=== PATIENT | female | born 1955 | race Caucasian/White ===

== ENCOUNTER 2017-02-09 05:48 | Emergency (ER) | payer MEDICAID ==
[~2017-02-09] VITALS: Ht 162.6 cm; Wt 59.0 kg
[~2017-02-09 05:48] MED LIST: AMITRIPTYLINE H50 MG PO; ASPIRIN325 MG PO; ATENOLOL25 MG PO; BACO TOP; CAPOTEN12.5 MG PO; CARAFATE1 GM PO; CATOPRIL PO; CIPRO500 MG PO; COLACE100 MG PO; CYCLOBENZAPRINE5 MG PO; ELA50 PO; ESG PO; ESTRADIOL0.1 MG/24 TD; FERG PO; FERROUS SULFAT325 M2 PO; GABAPENTIN300 M3 PO; HIB240 TP; HIBICLENS118 ML TOP; HYD1C TOP; HYD25 PO; HYDROCHLOROTHIA25 MG PO; IBUPROFEN400 MG PO; IMD60 PO; ISOSORBIDE MONO60 MG PO; KENC TOP; KLO0.5 PO; LAC PO; LAC-HYDRIN12% TOP; LEVAQUIN750 MG PO; MOTRIN600 MG PO; MUPIROCIN2% TOP; MYL80 CH; NEU300 PO; NORCO1 TA1 PO; OMEPRAZOLE DR20 M1 PO; PLA75 PO; PROAIR HFA0.09 MG/A1 INH; SIMVASTATIN40 M1 PO; TRIAMCINOLONE AC0.13 TOP; VENTOLIN H0.09 MG/A1 INH; VITAMIN C500 M3 PO; VIVELLE-DO0.1 MG/24 TD; VIVELLE-DO0.1 MG/24 TOP; ZOCOR40 MG PO; ZOLOFT50 MG PO; ZOLPIDEM TARTRAT5 MG PO
[2017-02-09 06:52] LABS: CALCIUM 8.7 mg/dL (8.5-10.1); CARBON DIOXIDE 29.4 mmol/L (21-32); CHLORIDE SERUM 106 mmol/L (98-107); CREATININE SERUM 0.6 mg/dL (0.6-1.0); GFR1 > 60 mL/min; GLUCOSE SERUM 90 mg/dL (74-106); POTASSIUM SERUM 3.7 mmol/L (3.5-5.1); SODIUM SERUM 143 mmol/L (136-145)
[2017-02-09 06:55] LABS: BASOPHIL % 0.7 % (0-2); PLATELET COUNT 386 x10^3mcL (130-400)
[2017-02-09 06:56] LABS: RED CELL DISTRIBUTION WIDTH 20.2 % (11.5-14.5)
[2017-02-09 06:57] LABS: rbc morphology (normal/abnorm) ABNORMAL (NORMAL)
[2017-02-09 06:58] LABS: ALBUMIN 3.6 g/dL (3.4-5.0); ALKALINE PHOSPHATASE 106 U/L (46-116); ALT/SGPT 18 U/L (14-59); AST/SGOT 20 U/L (15-37); BILIRUBIN TOTAL 0.27 mg/dL (0.20-1.00); CHOLESTEROL 166 mg/dL (<200); HDL CHOLESTEROL 56 mg/dL (40-60); TOTAL PROTEIN, SERUM 7.4 g/dL (6.4-8.2)
[2017-02-09 09:30] VITALS: BP 131/74
== END 2017-02-09 09:30 | disposition home or self-care (01) ==
LOC: ED 05:48
PROVIDERS: Emergency Medicine
DX: R06.00 Dyspnea, unspecified (principal); J98.01 Acute bronchospasm; G89.29 Other chronic pain; M54.40 Lumbago with sciatica, unspecified side; E78.00 Pure hypercholesterolemia, unspecified; Z88.8 Allergy status to other drugs, medicaments and biological substances
CPT/HCPCS: 83880; J2930; J7613

== ENCOUNTER 2017-06-06 11:24 | Emergency (ER) | payer MEDICAID ==
[2017-06-06 12:21] LABS: CALCIUM 8.8 mg/dL (8.5-10.1); CHLORIDE SERUM 105 mmol/L (98-107); CREATININE SERUM 0.7 mg/dL (0.6-1.0); GFR1 > 60 mL/min; GLUCOSE SERUM 109 mg/dL (74-106); POTASSIUM SERUM 4.2 mmol/L (3.5-5.1); SODIUM SERUM 140 mmol/L (136-145)
[2017-06-06 12:27] LABS: BASOPHIL % 0.5 % (0-2); PLATELET COUNT 368 x10^3mcL (130-400)
[2017-06-06 12:30] LABS: RED CELL DISTRIBUTION WIDTH 21.6 % (11.5-14.5)
[2017-06-06 12:31] LABS: rbc morphology (normal/abnorm) ABNORMAL (NORMAL)
[2017-06-06 13:30] VITALS: BP 117/68
== END 2017-06-06 13:30 | disposition home or self-care (01) ==
LOC: ED 11:24
PROVIDERS: Emergency Medicine
DX: S16.1XXA Strain of muscle, fascia and tendon at neck level, initial encounter (principal); S09.90XA Unspecified injury of head, initial encounter; I10 Essential (primary) hypertension; Z88.8 Allergy status to other drugs, medicaments and biological substances; W17.89XA Other fall from one level to another, initial encounter; Y93.89 Activity, other specified; Y99.8 Other external cause status; Y92.89 Other specified places as the place of occurrence of the external cause
CPT/HCPCS: 36415; J3010

== ENCOUNTER 2017-07-16 15:34 | Emergency (ER) | payer MEDICAID ==
[2017-07-16 18:43] VITALS: BP 125/65
== END 2017-07-16 18:43 | disposition home or self-care (01) ==
LOC: ED 15:34
DX: M51.36 Other intervertebral disc degeneration, lumbar region (principal); I10 Essential (primary) hypertension; E78.00 Pure hypercholesterolemia, unspecified; M54.30 Sciatica, unspecified side; Z88.8 Allergy status to other drugs, medicaments and biological substances; Z91.048 Other nonmedicinal substance allergy status
CPT/HCPCS: J1885

== ENCOUNTER 2017-12-13 13:39 | Inpatient (IN) | payer MEDICAID ==
[~2017-12-13] VITALS: Ht 157.5 cm; Wt 59.9 kg
[2017-12-13 13:53] VITALS: Ht 157.5 cm; Wt 59.9 kg
[2017-12-13 15:41] LABS: BASOPHIL % 0.1 % (0-2)
[2017-12-13 15:45] LABS: CALCIUM 8.5 mg/dL (8.5-10.1); CARBON DIOXIDE 30.7 mmol/L (21-32); CHLORIDE SERUM 102 mmol/L (98-107); CREATININE SERUM 0.7 mg/dL (0.6-1.0); GFR1 > 60 mL/min; GLUCOSE SERUM 98 mg/dL (74-106); POTASSIUM SERUM 3.7 mmol/L (3.5-5.1); SODIUM SERUM 141 mmol/L (136-145)
[2017-12-13 15:49] LABS: ALBUMIN 3.4 g/dL (3.4-5.0); ALKALINE PHOSPHATASE 99 U/L (46-116); ALT/SGPT 17 U/L (14-59); AST/SGOT 14 U/L (15-37); BILIRUBIN TOTAL 0.2 mg/dL (0.20-1.00); TOTAL PROTEIN, SERUM 7.2 g/dL (6.4-8.2)
[2017-12-13 15:50] LABS: PLATELET COUNT 431 x10^3mcL (130-400); RED CELL DISTRIBUTION WIDTH 21.6 % (11.5-14.5)
[2017-12-13 16:06] LABS: rbc morphology (normal/abnorm) ABNORMAL (NORMAL)
[2017-12-13] MEDS ORDERED: GOOD SENSE ASPI81 M3 PO (17:23)
[2017-12-13 18:12] VITALS: BP 176/69
[2017-12-13 18:47] LABS: T3 TOTAL 0.9 ng/mL
[2017-12-13 18:50] LABS: FREE T4 0.83 ng/dL (0.76-1.46); FREE THYROXINE INDEX 2.3 ug/dL (1.4-4.5); T4(THYROXINE) 6.9 ug/dL (4.7-13.3)
[2017-12-13 19:22] LABS: CHOLESTEROL/HDL RATIO 3.1; MAGNESIUM 1.9 mg/dL (1.8-2.4); PHOSPHOROUS 3.2 mg/dL (2.5-4.9)
[2017-12-13 22:23] VITALS: BP 136/52
[2017-12-14 06:28] VITALS: BP 129/67
[2017-12-14 09:58] VITALS: BP 121/51
[2017-12-14 12:40] VITALS: BP 127/65
[2017-12-14 16:36] VITALS: BP 107/54
[2017-12-14 16:48] VITALS: BP 107/54
== END 2017-12-14 19:28 | disposition home or self-care (01) | DRG 203 ==
LOC: ED 13:39 → DU 17:00
PROVIDERS: Family Medicine
DX: M94.0 Chondrocostal junction syndrome [Tietze] (principal); C95.90 Leukemia, unspecified not having achieved remission; I42.0 Dilated cardiomyopathy; I10 Essential (primary) hypertension; F12.90 Cannabis use, unspecified, uncomplicated; D64.9 Anemia, unspecified; K21.9 Gastro-esophageal reflux disease without esophagitis; Z53.29 Procedure and treatment not carried out because of patient's decision for other reasons; I07.1 Rheumatic tricuspid insufficiency; F41.9 Anxiety disorder, unspecified; E78.00 Pure hypercholesterolemia, unspecified; M51.17 Intervertebral disc disorders with radiculopathy, lumbosacral region; Z88.9 Allergy status to unspecified drugs, medicaments and biological substances; Z91.041 Radiographic dye allergy status; I25.2 Old myocardial infarction; Z95.5 Presence of coronary angioplasty implant and graft; Z90.49 Acquired absence of other specified parts of digestive tract; Z90.710 Acquired absence of both cervix and uterus; Z79.82 Long term (current) use of aspirin; Z79.899 Other long term (current) drug therapy; Z82.49 Family history of ischemic heart disease and other diseases of the circulatory system; Z72.89 Other problems related to lifestyle
CPT/HCPCS: 83880; 84439; J2405; J7030; Q0092

== ENCOUNTER 2018-01-19 09:28 | Emergency (ER) | payer MEDICAID ==
[~2018-01-19] VITALS: Ht 162.6 cm; Wt 66.2 kg
[~2018-01-19 09:28] MED LIST changes: +GOOD SENSE ASPI81 M3 PO
[2018-01-19 12:54] VITALS: BP 114/69
== END 2018-01-19 12:54 | disposition home or self-care (01) ==
LOC: ED 09:28
DX: G89.29 Other chronic pain (principal); M54.5 Low back pain; I10 Essential (primary) hypertension; E78.00 Pure hypercholesterolemia, unspecified; Z88.8 Allergy status to other drugs, medicaments and biological substances; Z91.048 Other nonmedicinal substance allergy status; M54.30 Sciatica, unspecified side
CPT/HCPCS: J3010

== ENCOUNTER 2018-01-21 21:31 | Emergency (ER) | payer MEDICAID ==
[~2018-01-21] VITALS: Ht 162.6 cm; Wt 66.2 kg
[2018-01-21 21:40] VITALS: Ht 162.6 cm; Wt 66.2 kg
[2018-01-21 22:54] LABS: BASOPHIL % 0.5 % (0-2)
[2018-01-21 23:02] LABS: PLATELET COUNT 425 x10^3mcL (130-400); RED CELL DISTRIBUTION WIDTH 22.4 % (11.5-14.5)
[2018-01-21 23:04] LABS: CALCIUM 8.5 mg/dL (8.5-10.1); CARBON DIOXIDE 29.1 mmol/L (21-32); CHLORIDE SERUM 105 mmol/L (98-107); CREATININE SERUM 0.8 mg/dL (0.6-1.0); GFR1 > 60 mL/min; GLUCOSE SERUM 109 mg/dL (74-106); SODIUM SERUM 141 mmol/L (136-145)
[2018-01-21 23:08] LABS: ALKALINE PHOSPHATASE 93 U/L (46-116); ALT/SGPT 21 U/L (14-59); AST/SGOT 22 U/L (15-37); BILIRUBIN TOTAL 0.14 mg/dL (0.20-1.00); TOTAL PROTEIN, SERUM 6.5 g/dL (6.4-8.2); rbc morphology (normal/abnorm) ABNORMAL (NORMAL)
[2018-01-21 23:09] LABS: ovalocyte/elliptocyte 2+; target cell (codocyte) 1+
[2018-01-21 23:20] LABS: FREE T4 0.79 ng/dL (0.76-1.46); FREE THYROXINE INDEX 2.1 ug/dL (1.4-4.5); T4(THYROXINE) 6.7 ug/dL (4.7-13.3)
[2018-01-21 23:21] LABS: ALBUMIN 3.1 g/dL (3.4-5.0)
[2018-01-22 00:38] LABS: T3 TOTAL 1.08 ng/mL
[2018-01-22 01:35] VITALS: BP 134/67
== END 2018-01-22 01:35 | disposition home or self-care (01) ==
LOC: ED 21:31
PROVIDERS: Emergency Medicine
DX: M54.41 Lumbago with sciatica, right side (principal); R53.1 Weakness; I10 Essential (primary) hypertension; E78.00 Pure hypercholesterolemia, unspecified; Z88.8 Allergy status to other drugs, medicaments and biological substances; Z91.048 Other nonmedicinal substance allergy status
CPT/HCPCS: 36415; 84439; J2270; Q0092; Q0162

== ENCOUNTER 2018-04-07 14:09 | Emergency (ER) | payer MEDICAID ==
[~2018-04-07] VITALS: Ht 162.6 cm; Wt 64.4 kg
[2018-04-07 14:14] VITALS: Ht 162.6 cm; Wt 64.4 kg
[2018-04-07 14:51] VITALS: BP 152/80
== END 2018-04-07 14:51 | disposition home or self-care (01) ==
LOC: ED 14:09
DX: S30.860A Insect bite (nonvenomous) of lower back and pelvis, initial encounter (principal); E78.00 Pure hypercholesterolemia, unspecified; I10 Essential (primary) hypertension; Z88.8 Allergy status to other drugs, medicaments and biological substances; Z91.041 Radiographic dye allergy status; W57.XXXA Bitten or stung by nonvenomous insect and other nonvenomous arthropods, initial encounter; Y93.89 Activity, other specified; Y92.89 Other specified places as the place of occurrence of the external cause; Y99.8 Other external cause status
CPT/HCPCS: J1200

== ENCOUNTER 2018-04-09 12:55 | Emergency (ER) | payer MEDICAID ==
[~2018-04-09] VITALS: Ht 162.6 cm; Wt 63.5 kg
[2018-04-09 13:00] VITALS: Ht 162.6 cm; Wt 63.5 kg
[2018-04-09 14:50] VITALS: BP 139/73
== END 2018-04-09 14:51 | disposition home or self-care (01) ==
LOC: ED 12:55
DX: R21 Rash and other nonspecific skin eruption (principal); L23.9 Allergic contact dermatitis, unspecified cause; E78.00 Pure hypercholesterolemia, unspecified; I10 Essential (primary) hypertension; Z91.048 Other nonmedicinal substance allergy status
CPT/HCPCS: J7512

== ENCOUNTER 2018-05-27 10:37 | Emergency (ER) | payer MEDICAID ==
[~2018-05-27] VITALS: Ht 162.6 cm; Wt 63.5 kg
[2018-05-27 10:43] VITALS: Ht 162.6 cm; Wt 63.5 kg
[2018-05-27 11:16] LABS: BASOPHIL % 0.6 % (0-2); PLATELET COUNT 371 x10^3mcL (130-400)
[2018-05-27 11:18] LABS: RED CELL DISTRIBUTION WIDTH 22.5 % (11.5-14.5)
[2018-05-27 11:40] LABS: ovalocyte/elliptocyte 1+; rbc morphology (normal/abnorm) ABNORMAL (NORMAL); target cell (codocyte) 1+
[2018-05-27 11:47] LABS: CALCIUM 8.9 mg/dL (8.5-10.1); CARBON DIOXIDE 29.5 mmol/L (21-32); CHLORIDE SERUM 104 mmol/L (98-107); CREATININE SERUM 0.6 mg/dL (0.6-1.0); GFR1 > 60 mL/min; GLUCOSE SERUM 96 mg/dL (74-106); POTASSIUM SERUM 3.9 mmol/L (3.5-5.1); SODIUM SERUM 139 mmol/L (136-145)
[2018-05-27 11:52] LABS: ALBUMIN 3.4 g/dL (3.4-5.0); ALKALINE PHOSPHATASE 104 U/L (46-116); ALT/SGPT 16 U/L (14-59); AST/SGOT 16 U/L (15-37); BILIRUBIN TOTAL 0.3 mg/dL (0.20-1.00); TOTAL PROTEIN, SERUM 7.5 g/dL (6.4-8.2)
[2018-05-27 13:52] LABS: AMPHETAMINE QUAL UR POSITIVE (See below)
[2018-05-27 14:47] VITALS: BP 120/67
== END 2018-05-27 14:47 | disposition home or self-care (01) ==
LOC: ED 10:37
PROVIDERS: Emergency Medicine
DX: R07.89 Other chest pain (principal); R51 Headache; I10 Essential (primary) hypertension; R20.2 Paresthesia of skin; E78.00 Pure hypercholesterolemia, unspecified; Z88.8 Allergy status to other drugs, medicaments and biological substances; Z85.6 Personal history of leukemia
CPT/HCPCS: 36415; Q0092

== ENCOUNTER 2018-07-26 19:39 | Emergency (ER) | payer MEDICAID ==
[2018-07-26 23:05] LABS: PLATELET COUNT 387 x10^3mcL (130-400)
[2018-07-26 23:06] LABS: CALCIUM 8.9 mg/dL (8.5-10.1); CARBON DIOXIDE 31.8 mmol/L (21-32); CHLORIDE SERUM 107 mmol/L (98-107); CREATININE SERUM 0.7 mg/dL (0.6-1.0); GFR1 > 60 mL/min; GLUCOSE SERUM 108 mg/dL (74-106); POTASSIUM SERUM 4.2 mmol/L (3.5-5.1); SODIUM SERUM 143 mmol/L (136-145)
[2018-07-26 23:07] LABS: BASOPHIL % 0 % (0-2); RED CELL DISTRIBUTION WIDTH 20.8 % (11.5-14.5)
[2018-07-26 23:15] LABS: ALBUMIN 3.4 g/dL (3.4-5.0); ALKALINE PHOSPHATASE 98 U/L (46-116); ALT/SGPT 17 U/L (14-59); AST/SGOT 18 U/L (15-37); BILIRUBIN TOTAL 0.27 mg/dL (0.20-1.00); TOTAL PROTEIN, SERUM 6.9 g/dL (6.4-8.2)
[2018-07-27 00:11] VITALS: BP 162/71
== END 2018-07-27 00:11 | disposition home or self-care (01) ==
LOC: ED 19:39
PROVIDERS: Emergency Medicine
DX: T78.49XA Other allergy, initial encounter (principal); D50.0 Iron deficiency anemia secondary to blood loss (chronic); Z91.048 Other nonmedicinal substance allergy status; E78.00 Pure hypercholesterolemia, unspecified; Z88.8 Allergy status to other drugs, medicaments and biological substances; X58.XXXA Exposure to other specified factors, initial encounter
CPT/HCPCS: J1100; J1885; Q0163

== ENCOUNTER 2018-07-28 10:00 | Inpatient (IN) | payer MEDICAID ==
[~2018-07-28] VITALS: Ht 162.6 cm; Wt 60.1 kg
[~2018-07-28 10:00] MED LIST changes: +PRILOSEC2.5 MG/Pa1
[2018-07-28 10:06] VITALS: Ht 162.6 cm; Wt 60.1 kg
[2018-07-28 10:57] LABS: BASOPHIL % 0.6 % (0-2); PLATELET COUNT 387 x10^3mcL (130-400)
[2018-07-28 11:07] LABS: CALCIUM 8.7 mg/dL (8.5-10.1); CARBON DIOXIDE 29.2 mmol/L (21-32); CHLORIDE SERUM 107 mmol/L (98-107); CREATININE SERUM 0.9 mg/dL (0.6-1.0); GFR1 > 60 mL/min; GLUCOSE SERUM 91 mg/dL (74-106); POTASSIUM SERUM 3.9 mmol/L (3.5-5.1); SODIUM SERUM 145 mmol/L (136-145)
[2018-07-28 11:10] LABS: RED CELL DISTRIBUTION WIDTH 20.9 % (11.5-14.5)
[2018-07-28 11:20] LABS: ALBUMIN 3.4 g/dL (3.4-5.0); ALKALINE PHOSPHATASE 105 U/L (46-116); ALT/SGPT 18 U/L (14-59); AST/SGOT 16 U/L (15-37); BILIRUBIN TOTAL 0.21 mg/dL (0.20-1.00); TOTAL PROTEIN, SERUM 7.4 g/dL (6.4-8.2)
[2018-07-28 12:59] VITALS: BP 163/91
[2018-07-28 14:22] LABS: CHOLESTEROL/HDL RATIO 2.8; MAGNESIUM 1.3 mg/dL (1.8-2.4); PHOSPHOROUS 3.2 mg/dL (2.5-4.9)
[2018-07-28 14:30] LABS: T3 TOTAL 1.21 ng/mL
[2018-07-28 14:55] LABS: FREE T4 0.92 ng/dL (0.76-1.46); FREE THYROXINE INDEX 2.3 ug/dL (1.4-4.5); T4(THYROXINE) 7.3 ug/dL (4.7-13.3)
[2018-07-28 15:21] VITALS: BP 132/90
[2018-07-28 18:27] VITALS: BP 128/71
[2018-07-28 20:39] VITALS: BP 159/88
[2018-07-29 03:55] LABS: microscopic required? NO
[2018-07-29 04:08] LABS: UA SPECIFIC GRAVITY 1.015 (1.005-1.035); urine erythrocyte NEGATIVE (NEGATIVE)
[2018-07-29 04:27] LABS: CALCIUM 8.2 mg/dL (8.5-10.1); CARBON DIOXIDE 28.3 mmol/L (21-32); CHLORIDE SERUM 107 mmol/L (98-107); CREATININE SERUM 0.7 mg/dL (0.6-1.0); GFR1 > 60 mL/min; GLUCOSE SERUM 118 mg/dL (74-106); MAGNESIUM 1.9 mg/dL (1.8-2.4); POTASSIUM SERUM 4.3 mmol/L (3.5-5.1); SODIUM SERUM 143 mmol/L (136-145)
[2018-07-29 04:32] LABS: BASOPHIL % 0.1 % (0-2); PLATELET COUNT 339 x10^3mcL (130-400); RED CELL DISTRIBUTION WIDTH 20.9 % (11.5-14.5)
[2018-07-29 04:39] LABS: AMPHETAMINE QUAL UR POSITIVE (See below)
[2018-07-29 05:33] VITALS: BP 141/74
[2018-07-29 09:16] VITALS: BP 120/61
[2018-07-29 11:01] VITALS: BP 120/61
[2018-07-29 12:55] VITALS: BP 103/55
[2018-07-29 17:41] VITALS: BP 103/57
== END 2018-07-29 18:19 | disposition home or self-care (01) | DRG 812 ==
LOC: ED 10:00 → DU 11:21
PROVIDERS: Emergency Medicine; General Practice
DX: T43.621A Poisoning by amphetamines, accidental (unintentional), initial encounter (principal); E83.42 Hypomagnesemia; R07.89 Other chest pain; F15.288 Other stimulant dependence with other stimulant-induced disorder; C95.91 Leukemia, unspecified, in remission; I10 Essential (primary) hypertension; E03.9 Hypothyroidism, unspecified; I34.1 Nonrheumatic mitral (valve) prolapse; I25.2 Old myocardial infarction; Z68.24 Body mass index [BMI] 24.0-24.9, adult; Z85.820 Personal history of malignant melanoma of skin; Z95.5 Presence of coronary angioplasty implant and graft; Y92.009 Unspecified place in unspecified non-institutional (private) residence as the place of occurrence of the external cause
CPT/HCPCS: 83880; 84439; G0480; J1885; J2930; J3010; J3535; J7030; J7613; J7644; Q0092

== ENCOUNTER 2018-09-12 12:01 | Emergency (ER) | payer MEDICAID ==
[~2018-09-12] VITALS: Ht 162.6 cm; Wt 64.4 kg
[2018-09-12 12:08] VITALS: Ht 162.6 cm; Wt 64.4 kg
[2018-09-12 14:44] VITALS: BP 150/93
== END 2018-09-12 14:44 | disposition home or self-care (01) ==
LOC: ED 12:01
DX: S50.862A Insect bite (nonvenomous) of left forearm, initial encounter (principal); I10 Essential (primary) hypertension; F41.9 Anxiety disorder, unspecified; M54.30 Sciatica, unspecified side; Z98.890 Other specified postprocedural states; Z90.49 Acquired absence of other specified parts of digestive tract; Z90.89 Acquired absence of other organs; Z91.041 Radiographic dye allergy status; W57.XXXA Bitten or stung by nonvenomous insect and other nonvenomous arthropods, initial encounter; Y93.89 Activity, other specified; Y92.89 Other specified places as the place of occurrence of the external cause; Y99.8 Other external cause status
CPT/HCPCS: J1200; J7512

== ENCOUNTER 2018-09-16 15:55 | Inpatient (IN) | payer MEDICAID ==
[~2018-09-16] VITALS: Ht 162.6 cm; Wt 65.9 kg
[2018-09-16 15:58] VITALS: Ht 162.6 cm; Wt 65.9 kg
[2018-09-16 18:26] LABS: BASOPHIL % 0.6 % (0-2)
[2018-09-16 18:30] LABS: CALCIUM 9.1 mg/dL (8.5-10.1); CARBON DIOXIDE 26.5 mmol/L (21-32); CHLORIDE SERUM 103 mmol/L (98-107); CREATININE SERUM 0.7 mg/dL (0.6-1.0); GFR1 > 60 mL/min; GLUCOSE SERUM 127 mg/dL (74-106); POTASSIUM SERUM 3.6 mmol/L (3.5-5.1); SODIUM SERUM 141 mmol/L (136-145)
[2018-09-16 18:35] LABS: RED CELL DISTRIBUTION WIDTH 23.4 % (11.5-14.5)
[2018-09-16 18:45] LABS: rbc morphology (normal/abnorm) ABNORMAL (NORMAL)
[2018-09-16 18:46] LABS: ovalocyte/elliptocyte 1+; target cell (codocyte) 1+; tear drop cell (dacryocyte) 1+
[2018-09-16 18:48] LABS: PLATELET COUNT 582 x10^3mcL (130-400)
[2018-09-16 20:26] LABS: CHOLESTEROL/HDL RATIO 3.2
[2018-09-16 20:56] VITALS: BP 146/79
[2018-09-16 21:25] LABS: microscopic required? NO
[2018-09-16 21:42] LABS: urine erythrocyte NEGATIVE (NEGATIVE)
[2018-09-16 21:50] LABS: AMPHETAMINE QUAL UR POSITIVE (See below)
[2018-09-17 05:10] VITALS: BP 116/70
[2018-09-17 07:19] LABS: CALCIUM 8.2 mg/dL (8.5-10.1); CARBON DIOXIDE 28.7 mmol/L (21-32); CHLORIDE SERUM 104 mmol/L (98-107); CREATININE SERUM 0.6 mg/dL (0.6-1.0); GFR1 > 60 mL/min; GLUCOSE SERUM 100 mg/dL (74-106); POTASSIUM SERUM 3.5 mmol/L (3.5-5.1); SODIUM SERUM 140 mmol/L (136-145)
[2018-09-17 08:07] LABS: BASOPHIL % 0.4 % (0-2)
[2018-09-17 08:08] LABS: PLATELET COUNT 530 x10^3mcL (130-400); RED CELL DISTRIBUTION WIDTH 22.8 % (11.5-14.5); rbc morphology (normal/abnorm) ABNORMAL (NORMAL)
[2018-09-17 08:11] VITALS: BP 103/54
[2018-09-17 11:30] VITALS: BP 96/54
[2018-09-17 13:10] VITALS: BP 96/54
== END 2018-09-17 13:40 | disposition home or self-care (01) | DRG 198 ==
LOC: ED 15:55 → DU 19:29
PROVIDERS: Emergency Medicine; Internal Medicine
DX: I24.9 Acute ischemic heart disease, unspecified (principal); F11.20 Opioid dependence, uncomplicated; F15.10 Other stimulant abuse, uncomplicated; F41.9 Anxiety disorder, unspecified; I25.10 Atherosclerotic heart disease of native coronary artery without angina pectoris; K21.9 Gastro-esophageal reflux disease without esophagitis; I10 Essential (primary) hypertension; M54.5 Low back pain; R09.1 Pleurisy; J44.9 Chronic obstructive pulmonary disease, unspecified; M19.90 Unspecified osteoarthritis, unspecified site; I25.2 Old myocardial infarction; Z79.82 Long term (current) use of aspirin; Z68.24 Body mass index [BMI] 24.0-24.9, adult
CPT/HCPCS: 82962; J2270; J3535; J7030

== ENCOUNTER 2018-10-14 18:39 | Emergency (ER) | payer MEDICAID ==
[~2018-10-14] VITALS: Ht 162.6 cm; Wt 66.2 kg
[2018-10-14 18:55] VITALS: Ht 162.6 cm; Wt 66.2 kg
[2018-10-14 21:06] VITALS: BP 137/63
== END 2018-10-14 21:06 | disposition home or self-care (01) ==
LOC: ED 18:39
DX: S00.81XA Abrasion of other part of head, initial encounter (principal); S00.01XA Abrasion of scalp, initial encounter; I10 Essential (primary) hypertension; I34.1 Nonrheumatic mitral (valve) prolapse; C94.81 Other specified leukemias, in remission; F41.9 Anxiety disorder, unspecified; E78.00 Pure hypercholesterolemia, unspecified; Z86.2 Personal history of diseases of the blood and blood-forming organs and certain disorders involving the immune mechanism; Z90.49 Acquired absence of other specified parts of digestive tract; Z90.89 Acquired absence of other organs; Z90.710 Acquired absence of both cervix and uterus; Z88.8 Allergy status to other drugs, medicaments and biological substances; Z91.048 Other nonmedicinal substance allergy status; V49.9XXA Car occupant (driver) (passenger) injured in unspecified traffic accident, initial encounter; Y93.89 Activity, other specified; Y92.89 Other specified places as the place of occurrence of the external cause; Y99.8 Other external cause status

== ENCOUNTER 2018-11-10 06:16 | Emergency (ER) | payer MEDICAID ==
[~2018-11-10] VITALS: Ht 162.6 cm; Wt 67.6 kg
[2018-11-10 06:20] VITALS: Ht 162.6 cm; Wt 67.6 kg
[2018-11-10 06:56] VITALS: BP 156/80
== END 2018-11-10 07:45 | disposition home or self-care (01) ==
LOC: ED 06:16
DX: S90.562A Insect bite (nonvenomous), left ankle, initial encounter (principal); S90.561A Insect bite (nonvenomous), right ankle, initial encounter; S30.860A Insect bite (nonvenomous) of lower back and pelvis, initial encounter; C95.91 Leukemia, unspecified, in remission; E78.00 Pure hypercholesterolemia, unspecified; I34.1 Nonrheumatic mitral (valve) prolapse; I10 Essential (primary) hypertension; F41.9 Anxiety disorder, unspecified; Z86.2 Personal history of diseases of the blood and blood-forming organs and certain disorders involving the immune mechanism; Z90.89 Acquired absence of other organs; Z90.49 Acquired absence of other specified parts of digestive tract; Z90.710 Acquired absence of both cervix and uterus; Z98.890 Other specified postprocedural states; Z88.8 Allergy status to other drugs, medicaments and biological substances; Z91.048 Other nonmedicinal substance allergy status; W57.XXXA Bitten or stung by nonvenomous insect and other nonvenomous arthropods, initial encounter; Y93.89 Activity, other specified; Y92.89 Other specified places as the place of occurrence of the external cause; Y99.8 Other external cause status

== ENCOUNTER 2018-12-16 19:51 | Inpatient (IN) | payer MEDICAID ==
[~2018-12-16] VITALS: Ht 162.6 cm; Wt 66.4 kg
[2018-12-16 20:29] VITALS: Ht 162.6 cm; Wt 66.4 kg
[2018-12-16 22:23] LABS: BASOPHIL % 0.3 % (0-2)
[2018-12-16 22:25] LABS: PLATELET COUNT 419 x10^3mcL (130-400)
[2018-12-16 22:26] LABS: RED CELL DISTRIBUTION WIDTH 20.5 % (11.5-14.5)
[2018-12-16 22:38] LABS: CALCIUM 8.5 mg/dL (8.5-10.1); CARBON DIOXIDE 29.2 mmol/L (21-32); CHLORIDE SERUM 105 mmol/L (98-107); CREATININE SERUM 0.6 mg/dL (0.6-1.0); GFR1 > 60 mL/min; GLUCOSE SERUM 105 mg/dL (74-106); POTASSIUM SERUM 3.4 mmol/L (3.5-5.1); SODIUM SERUM 141 mmol/L (136-145)
[2018-12-16 22:43] LABS: ALBUMIN 3.4 g/dL (3.4-5.0); ALKALINE PHOSPHATASE 109 U/L (46-116); ALT/SGPT 22 U/L (14-59); AST/SGOT 16 U/L (15-37); BILIRUBIN TOTAL 0.16 mg/dL (0.20-1.00); CHOLESTEROL 152 mg/dL (<200); HDL CHOLESTEROL 55 mg/dL (40-60); PHOSPHOROUS 3.7 mg/dL (2.5-4.9); TOTAL PROTEIN, SERUM 7.3 g/dL (6.4-8.2); rbc morphology (normal/abnorm) ABNORMAL (NORMAL); target cell (codocyte) 1+
[2018-12-17 05:05] LABS: BASOPHIL % 0.2 % (0-2); PLATELET COUNT 379 x10^3mcL (130-400)
[2018-12-17 05:12] LABS: CALCIUM 8.5 mg/dL (8.5-10.1); CARBON DIOXIDE 31.4 mmol/L (21-32); CHLORIDE SERUM 107 mmol/L (98-107); CREATININE SERUM 0.6 mg/dL (0.6-1.0); GFR1 > 60 mL/min; GLUCOSE SERUM 100 mg/dL (74-106); POTASSIUM SERUM 4.1 mmol/L (3.5-5.1); SODIUM SERUM 144 mmol/L (136-145)
[2018-12-17 05:21] LABS: rbc morphology (normal/abnorm) ABNORMAL (NORMAL); target cell (codocyte) 1+
[2018-12-17 16:17] VITALS: BP 100/53
[2018-12-17 17:50] VITALS: BP 94/54
[2018-12-17 19:14] LABS: microscopic required? NO
[2018-12-17 19:18] LABS: UA SPECIFIC GRAVITY 1.025 (1.005-1.035); urine erythrocyte NEGATIVE (NEGATIVE)
[2018-12-17 19:33] LABS: AMPHETAMINE QUAL UR POSITIVE (See below)
[2018-12-17 22:02] VITALS: BP 100/54
[2018-12-18 06:00] VITALS: BP 110/58
[2018-12-18 06:36] LABS: BASOPHIL % 0.3 % (0-2); PLATELET COUNT 387 x10^3mcL (130-400)
[2018-12-18 06:57] LABS: CALCIUM 8.8 mg/dL (8.5-10.1); CARBON DIOXIDE 30.4 mmol/L (21-32); CHLORIDE SERUM 102 mmol/L (98-107); CREATININE SERUM 0.7 mg/dL (0.6-1.0); GFR1 > 60 mL/min; GLUCOSE SERUM 115 mg/dL (74-106); PHOSPHOROUS 4.4 mg/dL (2.5-4.9); POTASSIUM SERUM 3.9 mmol/L (3.5-5.1); SODIUM SERUM 141 mmol/L (136-145)
[2018-12-18 06:58] LABS: RED CELL DISTRIBUTION WIDTH 21.2 % (11.5-14.5)
[2018-12-18 09:10] VITALS: BP 136/63
[2018-12-18 09:16] LABS: ovalocyte/elliptocyte 1+; rbc morphology (normal/abnorm) ABNORMAL (NORMAL); target cell (codocyte) 1+; tear drop cell (dacryocyte) 1+
[2018-12-18 13:04] VITALS: BP 136/63
[2018-12-18 13:30] VITALS: BP 124/79
[2018-12-18 16:15] VITALS: BP 101/61
== END 2018-12-18 18:45 | disposition home or self-care (01) | DRG 203 ==
LOC: ED 19:51 → DU 23:29
PROVIDERS: Emergency Medicine; ADMIT General Practice
DX: M94.0 Chondrocostal junction syndrome [Tietze] (principal); F11.20 Opioid dependence, uncomplicated; D51.0 Vitamin B12 deficiency anemia due to intrinsic factor deficiency; K21.9 Gastro-esophageal reflux disease without esophagitis; E87.6 Hypokalemia; C95.91 Leukemia, unspecified, in remission; I10 Essential (primary) hypertension; F15.10 Other stimulant abuse, uncomplicated; F12.10 Cannabis abuse, uncomplicated; R73.03 Prediabetes; I25.2 Old myocardial infarction; Z79.82 Long term (current) use of aspirin; Z85.820 Personal history of malignant melanoma of skin; Z95.5 Presence of coronary angioplasty implant and graft; Z91.14 Patient's other noncompliance with medication regimen
CPT/HCPCS: 83880; J2270; J2405; Q0092

== ENCOUNTER 2019-01-08 15:25 | Emergency (ER) | payer OTHER, MEDICAID ==
[~2019-01-08] VITALS: Ht 162.6 cm; Wt 64.4 kg
[2019-01-08 15:32] VITALS: Ht 162.6 cm; Wt 64.4 kg
[2019-01-08 17:48] VITALS: BP 174/93
== END 2019-01-08 17:48 | disposition home or self-care (01) ==
LOC: ED 15:25
DX: S29.9XXA Unspecified injury of thorax, initial encounter (principal); S50.12XA Contusion of left forearm, initial encounter; I10 Essential (primary) hypertension; F41.9 Anxiety disorder, unspecified; E78.00 Pure hypercholesterolemia, unspecified; Z86.2 Personal history of diseases of the blood and blood-forming organs and certain disorders involving the immune mechanism; Z90.710 Acquired absence of both cervix and uterus; Z90.89 Acquired absence of other organs; Z90.49 Acquired absence of other specified parts of digestive tract; Z88.8 Allergy status to other drugs, medicaments and biological substances; Z91.048 Other nonmedicinal substance allergy status; V48.5XXA Car driver injured in noncollision transport accident in traffic accident, initial encounter; Y93.I9 Activity, other involving external motion; Y92.488 Other paved roadways as the place of occurrence of the external cause; Y99.8 Other external cause status

== ENCOUNTER 2019-02-10 10:36 | Inpatient (IN) | payer OTHER ==
[~2019-02-10] VITALS: Ht 162.6 cm; Wt 66.9 kg
[2019-02-10 10:43] VITALS: Ht 162.6 cm; Wt 66.9 kg
--- NOTE | 2019-02-10 10:55 | NUR ---
PT BIB [facility] C/C C/P GENERALIZE WEAKNESS X 1 DAY PLACED ON MONITOR AWAITING FOR DR DERIK WILDER
--- NOTE | 2019-02-10 11:09 | NUR ---
PLEASE ENTER FULL NAMES OF MARKET RISK ANALYST/RN Patient data collected by (MARKET RISK ANALYST):RAINE VILLAFANA Assessment reviewed and completed by (RN):DIVINA FRANCIS
--- NOTE | 2019-02-10 11:34 | NUR ---
FOUND NUMBER FOR DAUGHTER TAM ON CHART, DIALED [phone], CALL WAS PICKED UP BUT NO ONE SPOKE OR WOULD ANSWER, I JUST HEARD BACKGROUND NOISE.
--- NOTE | 2019-02-10 11:35 | NUR ---
ADDITIONAL BLANKET PROVIDED.
[2019-02-10 11:54] LABS: PLATELET COUNT 382 x10^3mcL (130-400)
[2019-02-10 11:55] LABS: RED CELL DISTRIBUTION WIDTH 21.3 % (11.5-14.5)
[2019-02-10 11:58] LABS: CALCIUM 8.7 mg/dL (8.5-10.1); CARBON DIOXIDE 29.8 mmol/L (21-32); CHLORIDE SERUM 103 mmol/L (98-107); CREATININE SERUM 0.7 mg/dL (0.6-1.0); GFR1 > 60 mL/min; GLUCOSE SERUM 100 mg/dL (74-106); POTASSIUM SERUM 4.5 mmol/L (3.5-5.1); SODIUM SERUM 139 mmol/L (136-145)
[2019-02-10 12:03] LABS: ALBUMIN 3.5 g/dL (3.4-5.0); ALKALINE PHOSPHATASE 112 U/L (46-116); ALT/SGPT 19 U/L (14-59); AST/SGOT 15 U/L (15-37); TOTAL PROTEIN, SERUM 7.2 g/dL (6.4-8.2)
--- NOTE | 2019-02-10 12:04 | NUR ---
MED PER ORDE FOR 10/10 CHEST PAIN.
--- NOTE | 2019-02-10 12:05 | NUR ---
PT INSTRUCTED ON NEED FOR URINE SAMPLE. PT STILL C/O BEING COLD; ADDITIONAL WARM BLANKET GIVEN. PT IS TEARFUL & ASKING FOR ME TO TRY CALLING HER DAUGHTER AGAIN.
--- NOTE | 2019-02-10 12:14 | NUR ---
LEFT MESSAGE FOR DAUGHTER TAM.
[2019-02-10 12:43] LABS: ovalocyte/elliptocyte 1+; target cell (codocyte) 1+
[2019-02-10 12:44] LABS: rbc morphology (normal/abnorm) ABNORMAL (NORMAL)
--- NOTE | 2019-02-10 13:09 | NUR ---
PT RESTING NO DISCOMFORT OBSERVED
--- NOTE | 2019-02-10 14:25 | NUR ---
PT ADMIT TO TELE ROOM 234B GAVE REPORT TO NIC
[2019-02-10 14:40] LABS: T3 TOTAL 1.12 ng/mL
[2019-02-10 14:45] LABS: CHOLESTEROL/HDL RATIO 3.4; MAGNESIUM 2.1 mg/dL (1.8-2.4); PHOSPHOROUS 3.6 mg/dL (2.5-4.9)
[2019-02-10 14:59] LABS: FREE T4 0.79 ng/dL (0.76-1.46); FREE THYROXINE INDEX 2.4 ug/dL (1.4-4.5); T4(THYROXINE) 7.3 ug/dL (4.7-13.3)
[2019-02-10 15:03] VITALS: BP 148/84
--- NOTE | 2019-02-10 15:17 | NUR ---
RECEIVED PT WITH CC OF LEFT SIDED CHEST PAIN AND LEFT SIDE FACIAL NUMBNESS, 06/28. ALSO COMPLAINED OF THROBBING HEADACHE. PT IS AAOX4. RESP EVEN AND UNLABORED ON RA. NSR ON TELE #11, HR 76. BOWEL SOUNDS ACTIVE, SOFT, ROUND. LAST BM 02/09/19, FORMED. VOIDING FREELY, INFORMED PT THAT URINE SAMPLE IS NEEDED. AMBULATORY. PULSES PALPABLE ON ALL EXTREMITIES. MULTIPLES SCABS AND SCARS NOTED TO BILAT UPPER EXTREMITIES AND LEFT LOWER LEG, FADY, NO DRAINAGE. PT C/O BEING COLD, GIVEN 2 WARM BLANKETS. IV TO R HAND, NO REDNESS OR SWELLING NOTED. ORIENTED TO ROOM AND SURROUNDINGS. BED IN LOW POSITION, CALL LIGHT WITHIN REACH. WILL CONTINUE TO MONITOR.
--- NOTE | 2019-02-10 15:25 | NUR ---
PT GIVEN ALENA CRACKERS, JELLO, CHOCOLATE PUDDING, AND APPLE JUICE REQUESTED.
--- NOTE | 2019-02-10 18:27 | NUR ---
PT IN NO ACUTE DISTRESS. SLEEPING BUT EASILY AROUSABLE. RESP EVEN AND UNLABORED ON RA. NO PAIN NOTED. IVF INFUSING, NO REDNESS OR SWELLING TO IV SITE. BED IN LOW POSITION, CALL LIGHT WITHIN REACH. WILL ENDORSE TO ONCOMING SHIFT.
--- NOTE | 2019-02-10 19:32 | NUR ---
EYES CLOSED, EASILY AWAKENED. ORIENTED TO NAME, PLACE, TIME AND SITUATION. SPEECH CLEAR AND APPROPRIATE. HOB ELEVATED 35 DEG. BREATHING EVEN AND UNLABORED ON ROOM AIR, DENIES HAVING SHORTNESS OF BRATH. LUNG SOUNDS CLEAR. SINUS RHYTHM ON TELE. STATED HAVING LEFT SIDED CHEST PAIN 5/10 DESCRIBED PRESSURE PAIN. NORCO TABLET ADMINISTERED PO. IVF OF NS INFUSING WELL. REINFORCED NEED TO USE CALL LIGHT TO CALL FOR ASSISTANCE. PLACED WITHIN EASY REACH.
[2019-02-10 20:23] VITALS: BP 131/67
--- NOTE | 2019-02-10 21:51 | NUR ---
EYES CLOSED, BREATHING EVEN AND UNLABORED. HOB KEPT ELEVATED 30 DEG. SINUS RHYTHM ON TELE, HR 71/MIN.
--- NOTE | 2019-02-10 22:23 | NUR ---
PT AWAKE, STATED SHE IS HUNGRY, ASKED FOR SANDWICH AND SPRITE. PROVIDED. PT AMBULATED TO RESTROOM WITH STEADY GAIT.
[2019-02-10 22:41] LABS: microscopic required? NO
[2019-02-10 22:45] LABS: UA SPECIFIC GRAVITY 1.015 (1.005-1.035); urine erythrocyte NEGATIVE (NEGATIVE)
--- NOTE | 2019-02-10 22:45 | NUR ---
URINE SPECIMEN SENT TO LAB
[2019-02-10 22:57] LABS: AMPHETAMINE QUAL UR POSITIVE (See below)
--- NOTE | 2019-02-10 23:27 | NUR ---
STATED HAVING PAIN TO RIGHT THIGH, ALSO PAIN TO LEFT SIDE OF CHEST. NORCO TABLET ADMINISTERED PO. SINUS RHYTHM ON TELE. INFORMED DR. HERNANDEZ.
--- NOTE | 2019-02-10 23:28 | NUR ---
NEW ORDER RECEIVED
--- NOTE | 2019-02-11 02:55 | NUR ---
EYES CLOSED, BREATHING UNLABORED. CALL LIGHT WITHIN EASY REACH. IVF INFUSING WELL.
[2019-02-11 05:20] LABS: BASOPHIL % 0.6 % (0-2); PLATELET COUNT 332 x10^3mcL (130-400)
[2019-02-11 05:29] LABS: RED CELL DISTRIBUTION WIDTH 21.7 % (11.5-14.5)
[2019-02-11 05:30] LABS: CALCIUM 8.3 mg/dL (8.5-10.1); CARBON DIOXIDE 28.9 mmol/L (21-32); CHLORIDE SERUM 105 mmol/L (98-107); CREATININE SERUM 0.6 mg/dL (0.6-1.0); GFR1 > 60 mL/min; GLUCOSE SERUM 96 mg/dL (74-106); POTASSIUM SERUM 3.9 mmol/L (3.5-5.1); SODIUM SERUM 140 mmol/L (136-145)
[2019-02-11 05:49] LABS: rbc morphology (normal/abnorm) ABNORMAL (NORMAL)
[2019-02-11 06:17] VITALS: BP 126/66
--- NOTE | 2019-02-11 06:21 | NUR ---
EYES CLOSED, EASILY AWAKENED. DROWSY. ORIENTED X 4. ABLE TO MAKE NEEDS KNOWN. BREATHING EVEN AND UNLABORED. TROPONIN NEGATIVE X 3 DRAWS. SINUS RHYTHM ON TELE. CALL LIGHT WITHIN EASY REACH.
--- NOTE | 2019-02-11 07:12 | NUR ---
EYES CLOSED, BREATHING UNLABORED ON ROOM AIR. CALL LIGHT WITHIN EASY REACH. SINUS RHYTHM ON TELE, ENDORSED TO NURSE LAURYN
--- NOTE | 2019-02-11 07:40 | NUR ---
AAO X4.C/O CP AT 8/10 PAIN SCALE.WILL MEDICATE NEEDED.LUNGS CLEAR.ON SR ON THE MONITOR.IVF NS GOING AT 100 ML/HR INFUSING WELL.CALL LIGHT WITHIN REACH.INSTRUCTED TO CALL FOR ANY PAIN/DISCOMFORT.WILL CONTINUE TO MONITOR PT.
--- NOTE | 2019-02-11 07:40 | NUR ---
[facility]A PT JOSÉ MIGUEL FOR C/O N/V X1
--- NOTE | 2019-02-11 08:40 | NUR ---
GAVE PT NORCO 1 TAB FOR C/O CHEST PAIN AT 8/10 PAIN SCALE.WILL RECHECK AFTER AN HOUR.
--- NOTE | 2019-02-11 09:40 | NUR ---
WENT TO RECHECK PAIN LEVEL.PT IS SLEEPING COMFORTABLY NO SIGNS OF PAIN
[2019-02-11 10:13] VITALS: BP 169/79
[2019-02-11 12:53] VITALS: BP 169/79
[2019-02-11 14:22] VITALS: BP 142/66
--- NOTE | 2019-02-11 14:43 | NUR ---
PT D/C TO HOME.CALLED PT'S DAUGHTER TO LET HER KNOW PT IS DISCHARGED.AWAITING FOR CALL BACK
--- NOTE | 2019-02-11 14:59 | NUR ---
GOT A HOLD OF PT'S DAUGHTER.WILL DIVISION HEAD PT AT 3 PM.GOT PT READY.IV AND MONITOR D/C'D.WENT DOWN VIA WHEEL CHAIR ACCOMPANIED BY ASSISTANT CUSTOMER SERVICE MANAGER.DAUGHTER WILL BE WAITING FOR PT DOWNSTAIRS.
== END 2019-02-11 16:30 | disposition home or self-care (01) | DRG 206 ==
LOC: ED 10:36 → DU 13:48
PROVIDERS: Emergency Medicine; ADMIT General Practice
DX: M94.0 Chondrocostal junction syndrome [Tietze] (principal); C95.91 Leukemia, unspecified, in remission; K21.9 Gastro-esophageal reflux disease without esophagitis; E83.42 Hypomagnesemia; F15.10 Other stimulant abuse, uncomplicated; F12.10 Cannabis abuse, uncomplicated; F11.10 Opioid abuse, uncomplicated; I34.1 Nonrheumatic mitral (valve) prolapse; F41.9 Anxiety disorder, unspecified; I10 Essential (primary) hypertension; D51.0 Vitamin B12 deficiency anemia due to intrinsic factor deficiency; I25.10 Atherosclerotic heart disease of native coronary artery without angina pectoris; E02 Subclinical iodine-deficiency hypothyroidism; E78.5 Hyperlipidemia, unspecified; I25.2 Old myocardial infarction; Z68.24 Body mass index [BMI] 24.0-24.9, adult; Z95.5 Presence of coronary angioplasty implant and graft
CPT/HCPCS: 83880; 84439; J1885; J2405; J7030; Q0092

== ENCOUNTER 2019-03-01 12:28 | Emergency (ER) | payer OTHER ==
[~2019-03-01] VITALS: Ht 162.6 cm; Wt 63.5 kg
[2019-03-01 12:34] VITALS: Ht 162.6 cm; Wt 63.5 kg
[2019-03-01 17:18] VITALS: BP 153/79
== END 2019-03-01 17:18 | disposition home or self-care (01) ==
LOC: ED 12:28
DX: M54.32 Sciatica, left side (principal); I10 Essential (primary) hypertension; F41.9 Anxiety disorder, unspecified; E78.00 Pure hypercholesterolemia, unspecified; Z88.8 Allergy status to other drugs, medicaments and biological substances; Z91.09 Other allergy status, other than to drugs and biological substances; Z86.2 Personal history of diseases of the blood and blood-forming organs and certain disorders involving the immune mechanism; Z98.890 Other specified postprocedural states; Z90.49 Acquired absence of other specified parts of digestive tract; Z90.89 Acquired absence of other organs; Z90.710 Acquired absence of both cervix and uterus
CPT/HCPCS: J1885; J2270; Q0162

== ENCOUNTER 2019-03-07 14:23 | Emergency (ER) | payer OTHER ==
[~2019-03-07] VITALS: Ht 162.6 cm; Wt 67.6 kg
[2019-03-07 15:10] VITALS: Ht 162.6 cm; Wt 67.6 kg
[2019-03-07 19:14] VITALS: BP 141/77
== END 2019-03-07 19:14 | disposition home or self-care (01) ==
LOC: ED 14:23
DX: S39.012A Strain of muscle, fascia and tendon of lower back, initial encounter (principal); X58.XXXA Exposure to other specified factors, initial encounter; Y93.89 Activity, other specified; Y92.89 Other specified places as the place of occurrence of the external cause; Y99.8 Other external cause status; M54.41 Lumbago with sciatica, right side
CPT/HCPCS: J1885; Q0162

== ENCOUNTER 2019-05-30 17:35 | Emergency (ER) | payer OTHER ==
[~2019-05-30] VITALS: Ht 165.1 cm; Wt 70.3 kg
[2019-05-30 17:46] VITALS: Ht 165.1 cm; Wt 70.3 kg
[2019-05-30 18:37] VITALS: BP 160/84
== END 2019-05-30 18:30 | disposition home or self-care (01) ==
LOC: ED 17:35
DX: S90.862A Insect bite (nonvenomous), left foot, initial encounter (principal); I10 Essential (primary) hypertension; E78.00 Pure hypercholesterolemia, unspecified; F41.9 Anxiety disorder, unspecified; Z86.2 Personal history of diseases of the blood and blood-forming organs and certain disorders involving the immune mechanism; Z90.710 Acquired absence of both cervix and uterus; Z90.89 Acquired absence of other organs; Z98.890 Other specified postprocedural states; Z85.828 Personal history of other malignant neoplasm of skin; Z88.8 Allergy status to other drugs, medicaments and biological substances; Z91.048 Other nonmedicinal substance allergy status; W57.XXXA Bitten or stung by nonvenomous insect and other nonvenomous arthropods, initial encounter; Y93.89 Activity, other specified; Y92.89 Other specified places as the place of occurrence of the external cause; Y99.8 Other external cause status
CPT/HCPCS: 90715; Q0163